=== PATIENT | female | born 1930 | race Caucasian/White ===

== ENCOUNTER 2017-10-18 07:56 | Day surgery (SDC) | payer OTHER ==
[~2017-10-18] VITALS: Ht 170.2 cm; Wt 59.9 kg
[2017-10-18] MEDS ORDERED: LR 1,000 ML IV SCH (10:56)
[2017-10-18] MEDS ORDERED: METOCLOPRAMIDE HCL 10 MG/2 ML VIAL IVP PRN (11:00)
[2017-10-18] MEDS ORDERED: MORPHINE 4 MG/ML INJ. SYRINGE IVP PRN ×3 (11:00)
[2017-10-18] MEDS ORDERED: D5/0.45 NS 1,000 ML IV SCH (11:18)
[2017-10-18] MEDS ORDERED: HYDROmorphone 1 MG INJ. 1 MG/ML AMPUL IVP PRN (11:30)
[2017-10-18] MEDS ORDERED: HYDROcodone/ACETAMIN 5-325 MG TAB (NORCO/ VICODIN) PO PRN ×2 (11:30)
[2017-10-18 13:20] VITALS: BP_SYST 158
== END 2017-10-18 13:20 | disposition home or self-care (01) ==
LOC: SDS 07:56 → SMU 07:57 → SDS 13:20
PROVIDERS: ATTEND Colon & Rectal Surgery
DX: D05.11 Intraductal carcinoma in situ of right breast (principal); I25.10 Atherosclerotic heart disease of native coronary artery without angina pectoris; I49.9 Cardiac arrhythmia, unspecified; I10 Essential (primary) hypertension; E78.5 Hyperlipidemia, unspecified; J44.9 Chronic obstructive pulmonary disease, unspecified; M19.90 Unspecified osteoarthritis, unspecified site; Z90.710 Acquired absence of both cervix and uterus; Z96.649 Presence of unspecified artificial hip joint; Z98.890 Other specified postprocedural states
CPT/HCPCS: 19081; 19301; 76098; 88307; J7120